=== PATIENT | female | born 1980 | race Caucasian/White ===

== ENCOUNTER 2021-05-17 00:17 | Emergency (ER) | payer OTHER ==
[~2021-05-17 00:17] MED LIST: LISINOPRIL5 MG PO; PANTOPRAZOLE SO40 MG PO; SERTRALINE HCL50 MG PO; SUCRALFATE1 GM/10 ML PO
[2021-05-17 05:27] LABS: HEMOGLOBIN 14.2 gm/dl (12.3-15.3); RED BLOOD COUNT 4.36 M/UL (4.00-5.10); WHITE BLOOD COUNT 15.7 K/UL (4.5-11.0)
[2021-05-17 05:43] LABS: BUN/CREATININE RATIO 17 (0-10)
[2021-05-17] MEDS ORDERED: ZOFRAN ODT 4 MG4 MG PO (08:50)
[2021-05-17] MEDS ORDERED: BENTYL 10MG CAP10 MG PO (08:50)
[2021-05-17] MEDS ORDERED: CARAFATE1 GM PO (08:50)
== END 2021-05-17 10:26 | disposition home or self-care (01) ==
LOC: ER1 00:17
PROVIDERS: Physician Assistant
DX: R10.84 Generalized abdominal pain (principal); R11.2 Nausea with vomiting, unspecified; R19.7 Diarrhea, unspecified; I73.9 Peripheral vascular disease, unspecified; I10 Essential (primary) hypertension; F17.200 Nicotine dependence, unspecified, uncomplicated; Z90.49 Acquired absence of other specified parts of digestive tract; Z90.710 Acquired absence of both cervix and uterus; Z79.899 Other long term (current) drug therapy
CPT/HCPCS: 80053; 81001; 83690; 85025; 96374; 96375; 99284; C9113; J2270; Q9967

== ENCOUNTER → 2022-05-14 | Outpatient (CLI) | payer OTHER ==
[~2022-05-14] MED LIST changes: +BENTYL 10MG CAP10 MG PO; +CARAFATE1 GM PO; +ZOFRAN ODT 4 MG4 MG PO
== END ==
LOC: KOH-I 11:00
DX: M79.605 Pain in left leg (principal)
CPT/HCPCS: 93971